=== PATIENT | female | born 1980 | race Two or more races ===

== ENCOUNTER 2022-04-15 07:03 | Day surgery (SDC) | payer OTHER ==
[~2022-04-15 07:03] MED LIST: OMEPRAZOLE MAGN20 MG PO; SYNTHROID150 MCG PO
== END 2022-04-15 22:15 | disposition home or self-care (01) ==
LOC: CIR.AMB 07:03
PROVIDERS: ATTEND Obstetrics & Gynecology Obstetrics
DX: N93.8 Other specified abnormal uterine and vaginal bleeding (principal); N72 Inflammatory disease of cervix uteri; Z20.822 Contact with and (suspected) exposure to COVID-19; E03.9 Hypothyroidism, unspecified; D64.89 Other specified anemias